=== PATIENT | female | born 1970 | race Two or more races ===

== ENCOUNTER 2022-10-15 21:05 | Emergency (ER) | payer OTHER ==
[~2022-10-15] VITALS: Ht 175.3 cm; Wt 63.5 kg
[2022-10-15] MEDS ORDERED: SYNTHROID100 MCG PO (21:20)
[2022-10-16] MEDS ORDERED: PEPCID AC20 MG PO (00:10)
[2022-10-16] MEDS ORDERED: DICY20TA PO (00:10)
== END 2022-10-16 01:43 | disposition home or self-care (01) ==
LOC: ER 21:05
DX: K52.9 Noninfective gastroenteritis and colitis, unspecified (principal)

== ENCOUNTER 2022-11-14 15:42 | Emergency (ER) | payer OTHER ==
[~2022-11-14] VITALS: Ht 175.3 cm; Wt 65.8 kg
[~2022-11-14 15:42] MED LIST: DICY20TA PO; PEPCID AC20 MG PO; SYNTHROID100 MCG PO
[2022-11-14] MEDS ORDERED: YUVAFEM10 MCG VAG (16:06)
== END 2022-11-14 20:04 | disposition home or self-care (01) ==
LOC: ER 15:42
DX: M94.0 Chondrocostal junction syndrome [Tietze] (principal); I87.2 Venous insufficiency (chronic) (peripheral); E03.9 Hypothyroidism, unspecified

== ENCOUNTER 2023-04-13 19:36 | Emergency (ER) | payer OTHER ==
[~2023-04-13] VITALS: Ht 175.3 cm; Wt 68.9 kg
[~2023-04-13 19:36] MED LIST changes: +YUVAFEM10 MCG VAG
== END 2023-04-14 01:05 | disposition home or self-care (01) ==
LOC: ER 19:36
DX: R51.9 Headache, unspecified (principal); R07.9 Chest pain, unspecified; E03.9 Hypothyroidism, unspecified; Z20.822 Contact with and (suspected) exposure to COVID-19